=== PATIENT | female | born 1955 | race Caucasian/White ===

== ENCOUNTER 2021-03-16 16:53 | Emergency (ER) | payer OTHER, SELFPAY ==
[~2021-03-16] VITALS: Ht 167.6 cm; Wt 90.0 kg
[2021-03-16] MEDS ORDERED: PERCOCET 5MG/325MG TAB PO ONE (18:25)
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
[2021-03-16 21:07] VITALS: BP 173/77
--- NOTE | 2021-03-17 07:24 | ED PDOC ---
Post-Departure Follow-Up certified letter sent regarding radiology report Angelica Zelaya MD Mar 17, 2021 07:24
== END 2021-03-16 22:04 | disposition home or self-care (01) ==
LOC: EDBD 16:53 → M ED 16:53
DX: S42.022A Displaced fracture of shaft of left clavicle, initial encounter for closed fracture (principal); V43.52XA Car driver injured in collision with other type car in traffic accident, initial encounter; Y92.9 Unspecified place or not applicable; Y93.9 Activity, unspecified; Y99.9 Unspecified external cause status; K21.9 Gastro-esophageal reflux disease without esophagitis; E03.9 Hypothyroidism, unspecified; M54.9 Dorsalgia, unspecified; F32.9 Major depressive disorder, single episode, unspecified; I10 Essential (primary) hypertension; M19.012 Primary osteoarthritis, left shoulder; E07.89 Other specified disorders of thyroid; M48.02 Spinal stenosis, cervical region; Z88.5 Allergy status to narcotic agent

== ENCOUNTER → 2021-04-30 | Outpatient (CLI) | payer OTHER ==
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
== END ==
LOC: M SOG 15:42
PROVIDERS: ATTEND Orthopaedic Surgery Sports Medicine
DX: S42.022A Displaced fracture of shaft of left clavicle, initial encounter for closed fracture (principal); X58.XXXA Exposure to other specified factors, initial encounter; Y92.9 Unspecified place or not applicable; Y99.9 Unspecified external cause status; Y93.9 Activity, unspecified